=== PATIENT | male | born 1970 | race Caucasian/White ===

== ENCOUNTER 2019-03-15 08:48 | Day surgery (SDC) | payer BC ==
[2019-03-12 13:05] VITALS: BMI 35.9
[2019-03-15] MEDS ORDERED: Fentanyl 100 MCG/2 ML VIAL ONE ×2 (10:10→11:56)
[2019-03-15] MEDS ORDERED: Midazolam HCl 2 mg/2 ml Vial ONE (10:10)
[2019-03-15] MEDS ORDERED: traMADol HCl 50 MG TAB PO PRN ×2 (10:14)
[2019-03-15] MEDS ORDERED: Ondansetron PF 4 MG/2 ML Vial IVP PRN (10:14)
[2019-03-15] MEDS ORDERED: Ropivacaine 0.2% 550 ML 550 ML NERVE BLCK SCH (10:14)
[2019-03-15] MEDS ORDERED: Ketorolac Tromethamine 30 MG/ML VIAL IVP PRN (10:14)
[2019-03-15] MEDS ORDERED: Promethazine HCl 25 MG/ML VIAL IM PRN (10:14)
[2019-03-15] MEDS ORDERED: Zolpidem Tartrate 5 MG TAB PO PRN (10:14)
[2019-03-15] MEDS ORDERED: HYDROcodone/Acetaminophen 5/325 mg Tablet PO PRN ×2 (10:14)
[2019-03-15 10:25] LABS: #Basophils 0.1 thou/uL (0.0-0.2); #Eosinphils 0.3 thou/uL (0.0-0.7); #Lymphocytes 3.1 thou/uL (1.20-3.40); #Monocytes 0.6 thou/uL (0.11-0.59); %Basophils 1.3 % (0.0-1.0); %Eosinophils 3.1 % (0.0-10.0); %Lymphocytes 38.4 % (21.0-51.0); %Monocytes 7.2 % (0.0-10.0); Hemoglobin 16.6 g/dL (14.0-18.0); Mean Corpuscular HGB CONC 34.3 g/dL (32.0-36.0); Mean Corpuscular Hemoglobin 30.6 pg (27.0-31.0); Mean Corpuscular Volume 89.1 fL (78.0-98.0); Mean Platelet Volume 9.1 fL (7.4-10.4); Platelet Count 159 thou/uL (130-400); RBC Distribution Width 12.2 % (11.5-14.5); Red Blood Cell (RBC) Count 5.42 mill/uL (4.70-6.10)
[2019-03-15 10:34] LABS: Anion Gap 11 mmol/L (10-20); BUN (Urea Nitrogen) 11 mg/dL (8.9-20.6); Calc. Creatinine Clearance 166 mL/min (70-130); Calcium 9.1 mg/dL (7.8-10.44); Carbon Dioxide 28 mmol/L (22-29); Chloride 104 mmol/L (98-107); Estimated GFR-MDRD 85; Glucose 91 mg/dL (70-105); Potassium 4.5 mmol/L (3.5-5.1); Sodium 138 mmol/L (136-145)
[2019-03-15] MEDS ORDERED: Bupivacaine/Epinephrine 0.25% 30 ML VIAL ONE (12:30)
[2019-03-15] MEDS ORDERED: Ropivacaine 0.5% HCl/PF (150 MG/30 ML VIAL) ONE (13:37)
[2019-03-15] MEDS ORDERED: Ropivacaine 0.2% HCl/PF (40 MG/20 ML VIAL) ONE (13:37)
[2019-03-15] MEDS ORDERED: PROPOFOL 200 MG/20 ML VIAL ONE (13:55)
[2019-03-15] MEDS ORDERED: Rocuronium Bromide 10 MG/ML (10ML VIAL) ONE (13:55)
[2019-03-15] MEDS ORDERED: Ondansetron PF 4 MG/2 ML Vial ONE (13:55)
[2019-03-15] MEDS ORDERED: Lidocaine 1% PF 5 ML VIAL ONE (13:55)
[2019-03-15] MEDS ORDERED: ePHEDrine 50 MG/ML VIAL ONE (13:55)
--- NOTE | 2019-03-16 15:19 | OP ---
DATE OF PROCEDURE: 03/15/2019 PREOPERATIVE DIAGNOSES: Right shoulder impingement, partial cuff tear, and loose body in the anterior portion of the shoulder and degenerative labral tear and biceps tear and instability. POSTOPERATIVE DIAGNOSES: 1. Right shoulder impingement, partial cuff tear, and loose body in the anterior portion of the shoulder and degenerative labral tear and biceps tear and instability. 2. Significant right acromioclavicular joint osteoarthrosis. PROCEDURES PERFORMED: 1. Right shoulder arthroscopy with subacromial decompression. 2. Debridement and shaving of what appeared to be a partially calcified area of probable previous tendinosis with hemorrhage anterior to the subscapularis tendon. 3. Debridement of degenerative labral tear superiorly, posteriorly, and posteroinferiorly. 4. Open biceps tenodesis. 5. Open distal clavicle excision. DEPUTY INSURANCE COMMISSIONER: Elie Montelongo PA-C ESTIMATED BLOOD LOSS: 50 mL. COMPLICATIONS: None. ANESTHESIA: He did have a general anesthetic as well as a preoperative block. IMPLANTS: We did use a 7 x 23 BioComposite Bio-Tenodesis screw for the biceps tenodesis. DISPOSITION: He did go to recovery room in stable condition. INDICATIONS: This is a 49-year-old right-hand dominant male, who comes in complaining of severe pain in the right shoulder and was found on MRI to have multiple problems in the shoulder. At this time, he opted to have surgery. DESCRIPTION OF PROCEDURE: After all appropriate consent forms were explained and signed, he was taken back to the operative room and at this time was given general anesthetic. He was rolled into the left lateral decubitus position with all bony prominences well padded. The arm was taken through full range of motion and then was suspended with 15 pounds in standard arthroscopic fashion. The right shoulder and upper extremity were then prepped and draped in standard surgical fashion. Bony anatomical landmarks were drawn out and the subacromial space was infiltrated with Marcaine with epinephrine. Posterior portal was established and the scope was placed into the shoulder joint. An anterior working portal was then made using a needle localization technique. Diagnostic arthroscopy commenced. The articular surface of the humeral head and the glenoid were found to be in good condition. There were no loose bodies in the axillary pouch. The rotator cuff appeared to be intact. The labrum itself was severely degenerative including the superior labrum including tearing up into the biceps root. This went around the entire posterior labrum and even the posterior inferior labrum. The biceps tendon itself was found to be flat and hard. The subscapularis tendon was found to be intact. Just in front of the subscapularis tendon, was this yellowish reddish appearing mass. The shaver was introduced into this region and as it started to be eaten away, it had a consistency of calcific tendinitis with a chalky substance intermingled with previous hemorrhage. Once the synovial pop was removed, there was a large clot, approximately the size of a quarter, and this was all eaten away with the shaver. Once this was gone, there was no longer any remnant left. There were no visual signs that there was any remaining mass and the subscapularis tendon again appeared to be nice and clean and intact. The middle glenohumeral ligament intact anteriorly was intact. At this time, we debrided our labrum back to a stable base. We then placed a green cannula anteriorly. We placed an 18-gauge needle percutaneously and placed it through the biceps tendon and placed a suture through the tendon itself. The biceps was cut off the superior labrum using arthroscopic scissors. The scope was then repositioned in the subacromial space. Lateral working portal was made. Bursa was removed from off the underlying cuff. The cuff was found to be intact. We then were able to perform a subacromial decompression using the SERFAS energy and the shaver. The distal clavicle was found to be significantly arthritic. The capsule was really nonappearance and there was a large osteophyte inferiorly, which was placing pressure on the undersurface tissues. A needle was placed into the AC joint. Scope was removed. Shoulder was drained. A 15 blade was then used to incise obliquely on top of the AC joint. Bovie was used to coagulate any brisk venous bleeding. Full-thickness periosteal flaps were taken anterior and posterior to expose the distal clavicle. Saw was used to remove 1 cm distal clavicle. The edges were smoothed with a rasp and a small amount of bone wax was placed onto the bleeding cancellous bone. This area was thoroughly irrigated and dried. Multiple deep Vicryl sutures were used to close our periosteal sleeve, followed by 2-0 Vicryl and nylon sutures for the skin. We then turned our attention to the biceps. A 15 blade was used to make our incision, where the suture was coming out laterally down through skin. Bovie was used to coagulate any brisk venous bleeding. Deltoid fascia was opened sharply and blunt dissection was done using a finger to go down to the underlying humerus. Bicipital groove was palpated. A transverse humeral ligament was opened up. Brisk venous bleeding was coagulated. Biceps tendon was pulled into the wound, was sutured using the SutureLoop device and the intra-articular portion of the biceps tendon was removed. We then placed our guide pin. We reamed with a 7.5 reamer to a depth of 25 and placed our 7 x 23 BioComposite Bio-Tenodesis screw in standard fashion. Sutures were tied over top, so the screw were not back out. The area was thoroughly irrigated and dried. Deltoid fascia was closed with a running Vicryl, 2-0 Vicryl and sutures were then used to close the incision as well. Portals were closed with a simple nylon stitch. Bulky sterile dressing was applied. The patient was then awakened. He was taken to the recovery room in stable condition. All counts were correct at the end of the case and he did receive preoperative IV antibiotics. Job ID: [id number]
--- NOTE | 2019-03-17 19:46 | EKG ---
Test Reason : PREOP Blood Pressure : / mmHG Vent. Rate : 060 BPM Atrial Rate : 060 BPM P-R Int : 180 ms QRS Dur : 094 ms QT Int : 412 ms P-R-T Axes : 069 056 033 degrees QTc Int : 412 ms Normal sinus rhythm Normal ECG No previous ECGs available Confirmed by DR. Iraida ARAUJO MD ([id number]) on 03/17/2019 7:46:21 PM Referred By: IERO Confirmed By:DR. Iraida ARAUJO MD
== END 2019-03-15 16:05 | disposition home or self-care (01) ==
LOC: SDC 08:48
PROVIDERS: ATTEND Orthopaedic Surgery
PROC: 0PB90ZZ Excision of Right Clavicle, Open Approach (ICD-10-PCS; principal; 2019-03-15)
PROC: 0RBJ4ZZ Excision of Right Shoulder Joint, Percutaneous Endoscopic Approach (ICD-10-PCS; principal; 2019-03-15)
PROC: 0LS10ZZ Reposition Right Shoulder Tendon, Open Approach (ICD-10-PCS; principal; 2019-03-15)
PROC: 0RHJ04Z Insertion of Internal Fixation Device into Right Shoulder Joint, Open Approach (ICD-10-PCS; principal; 2019-03-15)
DX: S46.211A Strain of muscle, fascia and tendon of other parts of biceps, right arm, initial encounter (principal); M75.111 Incomplete rotator cuff tear or rupture of right shoulder, not specified as traumatic; M25.811 Other specified joint disorders, right shoulder; M19.011 Primary osteoarthritis, right shoulder; M24.011 Loose body in right shoulder; S43.491A Other sprain of right shoulder joint, initial encounter; F17.200 Nicotine dependence, unspecified, uncomplicated; E66.9 Obesity, unspecified; Z68.35 Body mass index [BMI] 35.0-35.9, adult
CPT/HCPCS: 36415; 80048; 85025; 93005; 93010; A4306; C1713; J0690; J2001; J2250; J2405; J2704; J2795; J3010; J3490